=== PATIENT | female | born 1980 | race Caucasian/White ===

== ENCOUNTER 2019-05-07 15:25 | Observation (INO) | payer MEDICAID, OTHER ==
[~2019-05-07] VITALS: Ht 160 cm; Wt 128.4 kg
[2019-05-07 18:21] LABS: AMPHET/METH SCREEN,URINE NEGATIVE (NEGATIVE); BARBITURATE SCREEN, URINE NEGATIVE (NEGATIVE); BENZODIAZEPINES SCREEN,URINE NEGATIVE (NEGATIVE); CANNABINOID SCREEN,URINE NEGATIVE (NEGATIVE); COCAINE SCREEN,URINE NEGATIVE (NEGATIVE); OPIATE SCREEN,URINE NEGATIVE (NEGATIVE); PHENCYCLIDINE SCREEN,URINE NEGATIVE (NEGATIVE)
== END 2019-05-07 18:30 | disposition home or self-care (01) ==
LOC: EDH 15:25 → LDH 15:26
PROVIDERS: ADMIT Obstetrics & Gynecology; ATTEND Obstetrics & Gynecology
DX: O36.8130 Decreased fetal movements, third trimester, not applicable or unspecified (principal); O62.3 Precipitate labor; Z3A.28 28 weeks gestation of pregnancy
CPT/HCPCS: 59025; 76805; 76819; 80305; 99285; G0378 ×2

== ENCOUNTER 2019-07-10 20:15 | Inpatient (IN) | payer MEDICAID ==
[~2019-07-10] VITALS: Ht 160 cm; Wt 128.8 kg
[2019-07-10] MEDS ORDERED: PROMETHAZINE HCL 25 MG/ML 1ML AMPULE IM PRN (20:30)
[2019-07-10] MEDS ORDERED: ROPIVACAINE 0.2% 100ML VIAL 100 ML EP PRN (20:30)
[2019-07-10] MEDS ORDERED: LACTATED RINGERS 500 ML 500 ML IV PRN (20:30)
[2019-07-10] MEDS ORDERED: NALOXONE HCL 0.4 MG/1 ML ML IV PRN (20:30)
[2019-07-10] MEDS ORDERED: MEPERIDINE-PF 50 MG/ML SYG IVP PRN (20:30)
[2019-07-10] MEDS ORDERED: EPHEDRINE SULFATE 50 MG/ML AMPULE IVP PRN (20:30)
[2019-07-10] MEDS ORDERED: PREN1TAB80 PO (20:54)
[2019-07-10 21:07] LABS: APPEARANCE,URINE Cloudy (CLEAR); BILIRUBIN,URINE Negative (NEGATIVE); COLOR,URINE Dark Yellow (YELLOW); GLUCOSE, URINE (UA) TRACE mg/dL (NEGATIVE); KETONES,URINE Trace mg/dL (NEGATIVE); LEUKOCYTE ESTERASE ,URINE Small (NEGATIVE); NITRATE,URINE Negative (NEGATIVE); OCCULT BLOOD,URINE Small (NEGATIVE); PH,URINE 5.5 (5.0-8.0); PROTEIN,URINE Trace mg/dL (NEGATIVE)
[2019-07-10 21:29] LABS: MEAN CORPUSCULAR HEMOGLOBIN 29.9 pg (27.0-33.0); MEAN CORPUSCULAR HGB CONC 33.6 g/dL (32.0-36.0); MEAN CORPUSCULAR VOLUME 88.9 fL (79-99); RED BLOOD CELL COUNT(AUTO) 4.05 MIL/uL (4.00-5.50); RED CELL DISTRIBUTION WIDTH 13.8 % (11.0-15.5); WHITE BLOOD COUNT (AUTO) 8.1 K/uL (4.8-10.8)
[2019-07-10 21:57] LABS: BACTERIA,URINE Few /HPF (None Seen); RBC,URINE None Seen /HPF (0-1)
[2019-07-10 22:00] VITALS: BP 124/75
[2019-07-10] MEDS ORDERED: DINOPROSTONE 10 MG VAGINAL SUPP VG SCH (22:00)
[2019-07-10] MEDS: LACTATED RINGERS 1000ML 1,000 ML IV PRN (22:08)
[2019-07-11] MEDS: LACTATED RINGERS 1000ML 1,000 ML IV PRN ×2 (05:16→13:54)
[2019-07-11] MEDS ORDERED: OXYTOCIN 10 USP UNITS/ML 20 UNIT in LACTATED RINGERS 1000ML 1,000 ML IV SCH (09:15)
[2019-07-11] MEDS ORDERED: OXYTOCIN-LR 20 UNITS/1000 ML 1,000 ML IV SCH (09:15)
[2019-07-11] MEDS: OXYTOCIN-LR 20 UNITS/1000 ML 1,000 ML IV SCH (09:29)
[2019-07-11] MEDS ORDERED: LIDOCAINE PF 2% 5ML ABBOJECT ONE ×4 (16:07→18:43)
[2019-07-11] MEDS ORDERED: CEFAZOLIN SODIUM 1 GM VIAL ONE (18:27)
[2019-07-11] MEDS ORDERED: FENTANYL CITRATE PF 50 MCG/1 ML 2ML VIAL ONE ×2 (18:42→19:11)
[2019-07-11] MEDS ORDERED: CEFAZOLIN SODIUM 1 GM VIAL IVP PRN (18:45)
[2019-07-11] MEDS ORDERED: PHENYLEPHRINE HCL 10 MG/ML 1ML VIAL IV ONE (18:49)
[2019-07-11] MEDS ORDERED: DURAMORPH PF1 MG/ML 10ML AMP IV ONE (18:50)
[2019-07-11] MEDS ORDERED: OXYTOCIN 10 UNIT/1ML 10ML VIAL ONE (19:02)
[2019-07-11] MEDS ORDERED: MIDAZOLAM HCL 1 MG/ML 2ML VIAL ONE (19:14)
[2019-07-11] MEDS ORDERED: ONDANSETRON HCL 4 MG/2 ML VIAL ONE (19:42)
[2019-07-11] MEDS ORDERED: MEPERIDINE-PF 25 MG/ML SYG ONE (20:28)
[2019-07-11] MEDS ORDERED: CALDOLOR 800MG+NS 250ML 250 ML IV PRN (20:45)
[2019-07-11] MEDS: CALDOLOR 800MG+NS 250ML 250 ML IV SCH (21:58)
[2019-07-11] MEDS ORDERED: PROMETHAZINE HCL 25 MG/ML 1ML AMPULE IM PRN (22:00)
[2019-07-11] MEDS ORDERED: MEPERIDINE-PF 75 MG/ML SYG IM PRN (22:00)
[2019-07-11] MEDS ORDERED: DEXTROSE 5 %-0.45 % NACL 1,000 ML IV PRN (22:00)
[2019-07-11] MEDS ORDERED: OXYTOCIN-LR 20 UNITS/1000 ML 1,000 ML IV PRN (22:00)
[2019-07-11] MEDS ORDERED: MEPERIDINE-PF 50 MG/ML SYG IVP PRN (22:00)
[2019-07-11 22:45] VITALS: BP 105/68
[2019-07-12 03:41] VITALS: BP 113/53
--- NOTE | 2019-07-12 04:00 | NUR ---
EPIDURAL INFUSION INFUSED AND PUMP TURNED OFF.
--- NOTE | 2019-07-12 04:03 | NUR ---
PT. MED. WITH DEMEROL IV, SEE MAR.
[2019-07-12] MEDS: OXYTOCIN-LR 20 UNITS/1000 ML 1,000 ML IV SCH (04:09)
--- NOTE | 2019-07-12 05:00 | NUR ---
EPIDURAL CATHETER REMOVED; BLUE TIP INTACT. NO LEAKING OR BRUISING AT SITE. PRESSURE APPLIED.
--- NOTE | 2019-07-12 06:00 | NUR ---
YESSI CARE DONE BY ADRIANA HENDRIX. PT DENIED DISCOMFORT.
[2019-07-12] MEDS: CALDOLOR 800MG+NS 250ML 250 ML IV SCH (06:12)
[2019-07-12 06:21] LABS: HEMATOCRIT 28.9 % (36-48); MEAN CORPUSCULAR HGB CONC 32.5 g/dL (32.0-36.0); MEAN CORPUSCULAR VOLUME 92.3 fL (79-99); RED BLOOD CELL COUNT(AUTO) 3.13 MIL/uL (4.00-5.50); RED CELL DISTRIBUTION WIDTH 13.8 % (11.0-15.5); WHITE BLOOD COUNT (AUTO) 9.9 K/uL (4.8-10.8)
--- NOTE | 2019-07-12 06:40 | NUR ---
ANTONIO JOAQUIN, PT INST TO CALL FOR ASSIST BEFORE GETTING OOB; VERBALIZED UNDERSTANDING. Addendum: 07/12/19 at 0723 by FAROOQ VAZQUEZ RN RN Amended: Links added.
[2019-07-12 07:35] VITALS: BP 108/51
[2019-07-12] MEDS ORDERED: CEFAZOLIN 3GM /D5W 100ML 100 ML IV PRN (08:00)
[2019-07-12 08:11] LABS: HEPATITIS Bs ANTIGEN SCREEN P Negative (Negative)
--- NOTE | 2019-07-12 09:55 | NUR ---
dressing change done to boil on chest Addendum: 07/12/19 at 1831 by KAVITA BAIN RN Amended: Links added.
[2019-07-12] MEDS ORDERED: DIPH,PERTUSS(ACELL),TET VAC/PF 0.5 ML VIAL IM SCH (10:00)
--- NOTE | 2019-07-12 10:10 | NUR ---
abdominal dressing removed, incision is dry and intact with caleb. applied abdominal binder, assisted to the bathroom, voided 300ml, pericare done, assisted to bedside chair. pt tolerated well Addendum: 07/12/19 at 1218 by KAVITA BAIN RN Amended: Links added.
--- NOTE | 2019-07-12 11:09 | NUR ---
HX of BIPOLAR, Major Depression, Anxiety, suicide attempt 1x met with pt who states she lives with her of 10 yrs Kevin Egan [phone]. Pt has 4 older kids 25,22,17,15 from a previous relationship. This is first child for couple, daughter RODRIGUEZ EGAN. Pt is on SSD, Medicaid, WIC and Food stamp assistance. BF works construction and works out of the [place]. Both are independent and drive. Couple have basic items for , including car seat and Dr Schmid her PCP [place] baby at [place]. Pt reports she was dx with Bipolar, anxiety and Major Depressive disorder as a teen, but her mother did not allow for psych care or treatment. Pt was re dx at age 26 with same thing and began getting psych care and meds at [facility] with Dr William. Pt states she had 1 suicide attempt and was placed at [facility] for 3 days. Pt denies any episodes with mental health since then. Pt continue her [facility] care until she moved to [place] in September 2018 and returned to [place] in May 2019. Pt attempted to restart services in May but was told to return after delivery. Pt states she plans to contact [facility] and begin services again. Pt denies any hx of post depression with any of her previous deliveries. Pt denies need for mental health resources, referral or intervention at this time. 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 Pt states kids were removed from their father and placed with her. Pt states she has good support system in place and will have help at [place] Addendum: 07/12/19 at 1218 by TOMASA SAHA Amended: Links added.
[2019-07-12 11:42] VITALS: BP 90/41
[2019-07-12] MEDS ORDERED: FERR325T22 PO (12:49)
[2019-07-12] MEDS ORDERED: SULF1TAB42 PO (12:49)
[2019-07-12] MEDS ORDERED: ACET1TAB25 PO (12:49)
--- NOTE | 2019-07-12 13:05 | NUR ---
verbal and written discharge instructions given, informed of the follow up appointment, prescription given, all questions answered, informed to call the doctor for future concerns, pt voiced understanding to all things discussed Addendum: 07/12/19 at 1829 by KAVITA BAIN RN Amended: Links added.
[2019-07-12] MEDS ORDERED: IBUPROFEN 800 MG TAB ONE (13:54)
[2019-07-12] MEDS ORDERED: IBUPROFEN 800 MG TAB PO PRN (15:00)
[2019-07-12 15:54] VITALS: BP 99/49
--- NOTE | 2019-07-12 18:30 | NUR ---
dressing change done on boil to chest. pictures taken prior to dressing change. Addendum: 07/12/19 at 1833 by KAVITA BAIN RN Amended: Links added.
--- NOTE | 2019-07-12 20:00 | NUR ---
DISCHARGE ALERT, ORIENTED, DENIES NAY CONCERNS, DISMISSED VIA W/C WITH INFANT IN ARMS, SPOUSE AT SIDE, TO CAR BY NORIS FORDE RN Addendum: 07/12/19 at 2303 by DERRICK BETTS LVN Amended: Links added.
== END 2019-07-12 20:00 | disposition home or self-care (01) | DRG 540 ==
LOC: LDH 20:15 → WSH 07-11 22:27
PROVIDERS: ADMIT Obstetrics & Gynecology; ATTEND Obstetrics & Gynecology
PROC: 3E0234Z Introduction of Serum, Toxoid and Vaccine into Muscle, Percutaneous Approach (ICD-10-PCS; 2019-07-11)
PROC: 10D00Z1 Extraction of Products of Conception, Low, Open Approach (ICD-10-PCS; principal; 2019-07-11 18:50)
DX: O40.3XX0 Polyhydramnios, third trimester, not applicable or unspecified (principal); O36.8130 Decreased fetal movements, third trimester, not applicable or unspecified; O62.2 Other uterine inertia; Z37.0 Single live birth; Z3A.38 38 weeks gestation of pregnancy; Z23 Encounter for immunization
CPT/HCPCS: 36415; 59510; 81001; 85027; 86592; 86850; 86900; 86901; 87070; 87076; 87077; 87088; 87186; 87340; 90715; A4314; A4344; G0378; J0690; J1741; J2001; J2175; J2250; J2274; J2370; J2405; J2590; J2795; J3010; J3490; J7120